=== PATIENT | female | born 1950 | race Caucasian/White ===

== ENCOUNTER 2016-10-01 14:52 | Emergency (ER) | payer MEDICARE ==
[~2016-10-01] VITALS: Ht 165.1 cm; Wt 100.0 kg
[2016-10-01 14:54] VITALS: BP 175/95; PULSE 87; RESP 20; TEMP 98.6; O2SAT 96
[2016-10-01] MEDS ORDERED: HYCOS PO (16:36)
--- NOTE | 2016-10-01 16:54 | PD ---
HPI Chief Complaint: Cold / Flu Symptoms Time Seen by Provider: 16:54 Travel History International Travel<30 days: No Contact w/Intl Traveler<30days: No Traveled to known affect area: No History of Present Illness HPI 66-year-old female presents to the emergency department for evaluation of cold symptoms that have been ongoing for approximately one month. She states she's been to urgent care twice. She went to urgent care on August 24, 2016 was prescribed Augmentin, prednisone. She went back early in September approximate 2 weeks ago, and was discharged prescription for cough medicine, albuterol, Medrol Dosepak. She states her symptoms are still ongoing. She is no longer using her albuterol inhaler. She reports coughing, congestion. She reports midsternal chest pain, especially with coughing. Patient denies any surgery or travel within the past month. No hemoptysis. No leg edema. No history DVT or PE. No history of cancer. Patient states she is wheezing. She denies any medical problems or take any prescribed medications. She has 3 with her medications that was given to her from the urgent care. PFSH Past Medical History Medical History: Denies Significant Hx Diminished Hearing: No Tetanus Vaccination: > 5 Years Influenza Vaccination: No ?: Not Past Surgical History Appendectomy: Yes Hysterectomy: Yes Tonsillectomy: Yes Other Surgery: Yes (LEFT KNEE REPLACED) Social History Alcohol Use: Yes (WINE HS) Tobacco Use: No Substance Use: No Allergies-Medications (Allergen,Severity, Reaction): Coded Allergies: Sulfa (Verified Allergy, Unknown, 10/01/16) Reported Meds & Prescriptions Reported Meds & Active Scripts Active Reported Hydromet Liq (Hydrocodone Bit/Homatropine Methylb) 5-1.5 Mg/5 Ml Syrp 5 Ml PO Q6H PRN Review of Systems Except as stated in HPI: all other systems reviewed are Neg Physical Exam Narrative GENERAL: Well-nourished, well-developed female patient, ambulatory. Afebrile. SKIN: Focused skin assessment warm/dry. HEAD: Normocephalic. Atraumatic. EYES: No scleral icterus. No injection or drainage. NECK: Supple, trachea midline. No JVD or lymphadenopathy. CARDIOVASCULAR: Regular rate and rhythm without murmurs, gallops, or rubs. RESPIRATORY: Breath sounds equal bilaterally. No accessory muscle use. Lungs sounds with expiratory wheezes throughout. GASTROINTESTINAL: Abdomen soft, non-tender, nondistended. MUSCULOSKELETAL: No cyanosis, or edema. Midsternal chest pain is easily reproducible with palpation. BACK: Nontender without obvious deformity. No CVA tenderness. Data Data Last Documented VS Vital Signs Date Time Temp Pulse Resp B/P Pulse Ox O2 Delivery O2 Flow Rate FiO2 10/01/16 17:35 99 Room Air 10/01/16 17:00 72 21 143/83 10/01/16 14:54 98.6 Orders Complete Blood Count With Diff (10/01/16 16:52) Basic Metabolic Panel (Bmp) (10/01/16 16:52) Ckmb (Isoenzyme) Profile (10/01/16 16:52) Troponin I (10/01/16 16:52) Iv Access Insert/Monitor (10/01/16 16:52) Electrocardiogram (10/01/16 16:52) Ecg Monitoring (10/01/16 16:52) Oximetry (10/01/16 16:52) Oxygen Administration (10/01/16 16:52) Chest, Single Ap (10/01/16 16:52) Sodium Chloride 0.9% Flush (Ns Flush) (10/01/16 17:00) Methylprednisolone So Succ Inj (Solumedr (10/01/16 17:00) Albuterol-Ipratropium Neb (Duoneb Neb) (10/01/16 17:00) Magnesium (Mg) (10/01/16 16:52) Labs Laboratory Tests Test 10/01/16 17:35 White Blood Count 7.0 TH/MM3 Red Blood Count 4.88 MIL/MM3 Hemoglobin 14.8 GM/DL Hematocrit 42.8 % Mean Corpuscular Volume 87.8 FL Mean Corpuscular Hemoglobin 30.3 PG Mean Corpuscular Hemoglobin 34.5 % Concent Red Cell Distribution Width 13.5 % Platelet Count 185 TH/MM3 Mean Platelet Volume 8.8 FL Neutrophils (%) (Auto) 54.2 % Lymphocytes (%) (Auto) 30.2 % Monocytes (%) (Auto) 6.2 % Eosinophils (%) (Auto) 8.7 % Basophils (%) (Auto) 0.7 % Neutrophils # (Auto) 3.8 TH/MM3 Lymphocytes # (Auto) 2.1 TH/MM3 Monocytes # (Auto) 0.4 TH/MM3 Eosinophils # (Auto) 0.6 TH/MM3 Basophils # (Auto) 0.1 TH/MM3 CBC Comment DIFF FINAL Differential Comment Sodium Level 137 MEQ/L Potassium Level 4.3 MEQ/L Chloride Level 105 MEQ/L Carbon Dioxide Level 26.6 MEQ/L Anion Gap 5 MEQ/L Blood Urea Nitrogen 8 MG/DL Creatinine 0.74 MG/DL Estimat Glomerular Filtration 78 ML/MIN Rate Random Glucose 93 MG/DL Calcium Level 9.1 MG/DL Magnesium Level 2.2 MG/DL Total Creatine Kinase 46 U/L Troponin I LESS THAN 0.02 NG/ML MDM Medical Decision Making Medical Screen Exam Complete: Yes Emergency Medical Condition: Yes Medical Record Reviewed: Yes Interpretation(s) Last Impressions Chest X-Ray 10/01/161651 Signed Impressions: Service Date/Time: Saturday, October 01, 2016 17:18 - CONCLUSION: No acute cardiopulmonary disease. Cheryl Johnson MD Differential Diagnosis URI versus bronchitis versus pneumonia Narrative Course 66-year-old well-appearing female presents to the emergency department for evaluation for a month's worth of coughing. She has been on 2 doses of steroids , Augmentin, cough medicine. EKG shows sinus rhythm, heart rate 62, no acute ST changes. CBC, BMP, CK, troponin, magnesium, chest x-ray ordered and pending. Patient is given DuoNeb 3 and Solu-Medrol 125 mg IV. CBC shows no acute abnormality. BMP is unremarkable. CK is 46. Troponin is less than 0.02. Magnesium is 2.2. Chest x-ray shows no acute disease. Patient will be discharged prescription for prednisone, azithromycin, Claritin. She is instructed to follow-up with a primary care physician. She is to continue her albuterol inhaler as needed for shortness of breath/wheezing. She verbalizes agreement and understanding. She is return here for any acute worsening of symptoms. The patient was discharged in stable condition with instructions, including return instructions and follow up instructions. Diagnosis Primary Impression: Upper respiratory infection Qualified Code: J06.9 - Upper respiratory tract infection, unspecified type Referrals: Primary Care Physician call for appointment Patient Instructions: General Instructions, Upper Respiratory Infection (ED) Additional Instructions: Take Claritin daily. Take prednisone as directed. Start this tomorrow. Take antibiotic as directed until gone. Follow-up with your primary care physician. Return to the emergency department for any acute worsening of symptoms. Med/Other Pt SpecificInfo: Prescription(s) given Scripts Loratadine (Claritin)10 Mg Cap10 Mg PO DAILY 30 Days Ref 0 Prov:Dorie Toney 10/01/16 Prednisone 20 Mg Tab40 Mg PO DAILY 4 Days Ref 0 Prov:Dorie Toney 10/01/16 Azithromycin (Zithromax Z-Noam)250 Mg Atfu351 Mg PO DIRECTED #1 DSPK Ref 0 500 MG (2 tabs) day 1, then 1 tab days 2-5. Prov:Dorie Toney 10/01/16 Disposition: 01 DISCHARGE HOME Condition: Stable Dorie Toney Oct 01, 2016 16:54
[2016-10-01 17:00] VITALS: BP 143/83; PULSE 72; RESP 21; O2SAT 98
[2016-10-01] MEDS ORDERED: SODIUM CHLORIDE 0.9% FLUSH 10 ML FLUSH IVF PRN (17:00)
[2016-10-01] MEDS ORDERED: methylPREDNISolone SOD SUCC 125 MG/2 ML VIAL IVP ONE (17:00)
[2016-10-01 17:35] VITALS: O2SAT 99
--- NOTE | 2016-10-01 17:38 | RADRPT ---
EXAM DATE/TIME: 10/01/2016 17:18 [facility] COMPARISON: No previous studies available for comparison. INDICATIONS : Cough, congestion, fever. MEDICAL HISTORY : None. SURGICAL HISTORY : Appendectomy. Hysterectomy. ENCOUNTER: Initial ACUITY: 3 months PAIN SCORE: 5/10 LOCATION: chest midline. FINDINGS: The lungs are clear without infiltrate, nodule, or mass. There is no appreciable pleural effusion fo r technique. Heart and mediastinum are unremarkable. There is calcific tendinitis involving the righ t shoulder. There are atherosclerotic calcifications of the aorta due to chronic atherosclerotic dise ase. CONCLUSION: No acute cardiopulmonary disease. Cheryl Johnson MD on October 01, 2016 at 17:36 Board Certified Radiologist. This report was verified electronically.
[2016-10-01] MEDS: RESP: ALBUTEROL 2.5 MG/IPRATROPIUM 0.5 MG NEB (SCH) INH ×2 (18:08→18:09)
[2016-10-01 18:23] LABS: AUTOMATED NEUTROPHIL # 3.8 TH/MM3 (1.8-7.7); BASOPHIL # 0.1 TH/MM3 (0-0.2); BASOPHIL % 0.7 % (0.0-2.0); EOSINOPHIL # 0.6 TH/MM3 (0-0.4); EOSINOPHIL % 8.7 % (0.0-4.0); HEMATOCRIT 42.8 % (35.0-46.0); HEMO FLAGS DIFF FINAL; LYMPH % 30.2 % (9.0-44.0); LYMPHOCYTE # 2.1 TH/MM3 (1.0-4.8); MEAN CELL VOLUME 87.8 FL (80.0-100.0); MEAN CORPUSCULAR HEMOGLOBIN 30.3 PG (27.0-34.0); MEAN CORPUSCULAR HGB CONC 34.5 % (32.0-36.0); MONO % 6.2 % (0.0-8.0); NEUT % 54.2 % (16.0-70.0); PLATELET COUNT 185 TH/MM3 (150-450); RED BLOOD COUNT 4.88 MIL/MM3 (4.00-5.30); RED CELL DISTRIBUTION WIDTH 13.5 % (11.6-17.2)
[2016-10-01 18:35] LABS: ANION GAP 5 MEQ/L (5-15); BICARBONATE 26.6 MEQ/L (21.0-32.0); BLOOD UREA NITROGEN 8 MG/DL (7-18); CHLORIDE 105 MEQ/L (98-107); GLOMERULAR FILTRATION RATE 78 ML/MIN (>89); MAGNESIUM 2.2 MG/DL (1.5-2.5); POTASSIUM 4.3 MEQ/L (3.5-5.1); SODIUM (NA) 137 MEQ/L (136-145)
[2016-10-01 18:40] LABS: CREATINE KINASE 46 U/L (26-192)
[2016-10-01] MEDS ORDERED: CLAR10CA3 PO (18:54)
[2016-10-01] MEDS ORDERED: PRED20 PO (18:54)
[2016-10-01] MEDS ORDERED: ZITHTAB PO (18:54)
[2016-10-01 19:21] VITALS: BP 141/83; TEMP 98.9
--- NOTE | 2016-10-02 19:15 | EKG ---
Date Performed: 10/01/2016 Time Performed: 17:38:20 PTAGE: 66 years EKG: Sinus rhythm MINIMAL VOLTAGE CRITERIA FOR LVH, CONSIDER NORMAL VARIANT BORDERLINE ECG NO PREVIOUS TRACING DOCTOR: Lucien Colunga Interpretating Date/Time 10/02/2016 19:14:36
== END 2016-10-01 19:33 | disposition home or self-care (01) ==
LOC: NEPD 14:52
DX: J06.9 Acute upper respiratory infection, unspecified (principal); R05 Cough; R07.9 Chest pain, unspecified; R06.2 Wheezing; R94.31 Abnormal electrocardiogram [ECG] [EKG]; Z79.899 Other long term (current) drug therapy
CPT/HCPCS: 71010; 80048; 82550; 83735; 84484; 85025; 93005; 94640; 94664; 96374; 99285; J2930